=== PATIENT | male | born 1980 | race Caucasian/White ===

== ENCOUNTER 2019-01-20 20:45 | Emergency (ER) | payer SELFPAY ==
--- NOTE | 2019-01-20 21:10 | EDM.PDOC ---
ED HPI GENERAL MEDICAL PROBLEM - General Chief Complaint: Chemical Exposure Stated Complaint: POSS POISON INHALED ON SITE Time Seen by Provider: 01/20/19 21:10 - History of Present Illness INITIAL COMMENTS - FREE TEXT/NARRATIVE: 38-year-old male presents emergency room nearly 6-1/2 hours after exposure to H2 S. Patient has significant COPD and underlying emphysema. 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 The patient is doing much better after the exposure during the exposure he had some chest tightness this did resolve he did not have any foaming at the mouth or any other ominous symptoms. And this far out he is through the worst of it. He usually has an albuterol inhaler but he is not sure where it is at. - Related Data Allergies Allergy/AdvReac Type Severity Reaction Status Date / Time No Known Allergies Allergy Verified 01/20/19 21:07 Home Meds: Home Meds Metoprolol Tartrate [Lopressor] 25 mg PO Q12HR 01/20/19 [History] Metoprolol Tartrate [Lopressor] 25 mg PO Q12HR #30 tab 01/20/19 [Rx] ED ROS GENERAL - Review of Systems Review Of Systems: See Below Constitutional: Reports: No Symptoms HEENT: Reports: No Symptoms Respiratory: Reports: Other (He has a little bit of tightness remaining with deep inspiration). Denies: Shortness of Breath, Cough, Sputum, Hemoptysis Cardiovascular: Reports: No Symptoms Endocrine: Reports: No Symptoms GI/Abdominal: Reports: No Symptoms : Reports: No Symptoms Musculoskeletal: Reports: No Symptoms Skin: Reports: No Symptoms Neurological: Reports: No Symptoms Psychiatric: Reports: No Symptoms ED EXAM, BURN/SMOKE INHALATION - Physical Exam Exam: See Below Exam Limited By: No Limitations General Appearance: Alert, No Apparent Distress Eye Exam: Bilateral Eye: Normal Inspection Ears (Abbreviated): Normal External Exam, Normal Canal, Hearing Grossly Normal, Normal TMs Mouth/Throat: No Symptoms Reported, Bleeding Head: No Symptoms Neck: No Symptoms, Normal, Supple, Full Range of Motion. No: Lymphadenophy (R) , Lymphadenopy (L) Respiratory: No Respiratory Distress, Lungs Clear, Decreased Breath Sounds ( Slightly decreased breath sounds this apparently is chronic for him). No: Crackles, Rhonchi Cardiovascular: Regular Rate, Rhythm, No Edema, No Murmur Back Exam: Normal Inspection. No: CVA Tenderness (L), CVA Tenderness (R) Extremities: Normal Inspection, No Pedal Edema Neurological: Alert, Oriented, Normal Cognition Course - Vital Signs Last Recorded V/S: Last Vital Signs Temp 37.2 C 01/20/19 21:05 Pulse 82 01/20/19 21:05 Resp 18 01/20/19 21:05 BP 146/96 H 01/20/19 21:05 Pulse Ox 96 01/20/19 21:05 - Orders/Labs/Meds Orders: Active Orders 24 hr Category Date Time Status RT Post Treatment Assessment [RC] Click to Edit Care 01/20/19 21:38 Active RT Pre-Treatment Assessment [RC] Click to Edit Care 01/20/19 21:38 Active Chest 2V [CR] Stat Exams 01/20/19 21:25 Taken Meds: Medications Discontinued Medications Generic Name Dose Route Start Last Admin Trade Name Roberta PRN Reason Stop Dose Admin Albuterol 0 gm 01/20/19 21:38 01/20/19 21:46 Proventil Hfa INH 01/20/19 21:39 2 puff ONETIME ONE Administration - Re-Assessments/Exams Free Text/Narrative Re-Assessment/Exam: 01/20/19 22:33 We will give the patient a new albuterol inhaler he should uses 2 puffs every 4 hours with his underlying lung disease the patient also needs refill of his Lopressor 25 mg twice a day Departure - Departure Time of Disposition: 22:33 Disposition: 20 Clinical Impression: Inhalation injury - Discharge Information Prescriptions: Metoprolol Tartrate [Lopressor] 25 mg PO Q12HR #30 tab Referrals: PCP,None [Primary Care Provider] - Forms: ED Department Discharge Additional Instructions: Return to the emergency room with any questions problems worsening symptoms. Use the inhaler we gave E2 puffs every 4 hours while awake. I have refilled year Lopressor for the next 15 days. Discussed further refills with her regular physician. If needed follow-up in the Hospital clinic at the end of this week for recheck [phone] - My Orders Last 24 Hours: My Active Orders 01/20/19 21:25 Chest 2V [CR] Stat 01/20/19 21:38 RT Post Treatment Assessment [RC] Click to Edit RT Pre-Treatment Assessment [RC] Click to Edit - Assessment/Plan Last 24 Hours: My Active Orders 01/20/19 21:25 Chest 2V [CR] Stat 01/20/19 21:38 RT Post Treatment Assessment [RC] Click to Edit RT Pre-Treatment Assessment [RC] Click to Edit
[2019-01-20] MEDS ORDERED: Albuterol 6.7 GM Inhaler INH ONE (21:38)
--- NOTE | 2019-01-21 05:32 | CR ---
Chest: 2 views of the chest were obtained. Comparison: No prior chest x-ray is available. Heart size and mediastinum are normal. Nodule is seen within the right upper lung measuring 1.3 cm. Lungs otherwise are clear. Slight scoliosis is noted within the spine.. Impression: 1. 1.3 cm nodule within the right upper lung. Noncontrast chest CT recommended to further evaluate. 2. Nothing acute is otherwise seen on 2 view chest x-ray. Diagnostic code #9
== END 2019-01-20 22:53 | disposition home or self-care (01) ==
LOC: JD.ED 20:45
DX: T59.6X1A Toxic effect of hydrogen sulfide, accidental (unintentional), initial encounter (principal); R07.89 Other chest pain; J43.9 Emphysema, unspecified
CPT/HCPCS: 71046; 99285; A9270; 99283